=== PATIENT | female | born 1965 | race Caucasian/White ===

== ENCOUNTER 2024-10-23 09:19 | Day surgery (SDC) | payer BC ==
[2024-10-19 09:15] LABS: BASOPHILS # (AUTO) 0.1 X10'3 (0-0.2); BASOPHILS % (AUTO) 1.1 % (0-1); EOSINOPHILS # (AUTO) 0.2 X10'3 (0-0.9); EOSINOPHILS % (AUTO) 2.6 % (0-6); HEMATOCRIT 45.8 % (35.0-45.0); HEMOGLOBIN 15.5 g/dl (12.0-16.0); LYMPHOCYTES # (AUTO) 1.6 X10'3 (1.1-4.8); LYMPHOCYTES % (AUTO) 21.5 % (21-51); MEAN CORPUSCULAR HEMOGLOBIN 29.9 PG (27.0-31.0); MEAN CORPUSCULAR HGB CONC 33.8 g/dL (33.0-36.5); MEAN CORPUSCULAR VOLUME 88.7 FL (78-98); MEAN PLATELET VOLUME 7.1 FL (7.4-10.4); MONOCYTES # (AUTO) 0.4 X10'3 (0-0.9); MONOCYTES % (AUTO) 5.4 % (2-12); NEUTROPHILS % (AUTO) 69.4 % (42-75); PLATELET COUNT 322 X10'3 (140-440); RED BLOOD COUNT 5.17 X10'6 (4.20-5.60); RED CELL DISTRIBUTION WIDTH 12.9 % (11.5-14.5); WHITE BLOOD COUNT 7.3 X10'3 (4.5-11.0)
[2024-10-19 09:31] LABS: APTT 27 SECONDS (22-32)
[2024-10-19 09:36] LABS: PROTHROMBIN TIME 10.3 SECONDS (9.0-12.0)
[2024-10-19 09:37] LABS: ALBUMIN 4.2 G/DL (3.4-5.0); ANION GAP 6 (8-16); BLOOD UREA NITROGEN 11 MG/DL (7-18); BUN/CREATININE RATIO 19.6 (10.0-20.0); CALCIUM 9.5 MG/DL (8.5-10.1); CHLORIDE 107 MMOL/L (99-107); CHOL/HDL RATIO 2.1 (0.00-4.99); CHOLESTEROL 179 MG/DL (0-200); CREATININE 0.56 MG/DL (0.40-0.90); GLUCOSE 104 MG/DL (70-104); HDL CHOLESTEROL 85 MG/DL (35-60); LDL CHOLESTEROL 77 MG/DL (50-100); POTASSIUM 4.5 MMOL/L (3.5-5.1); SODIUM 140 MMOL/L (135-145); TOTAL CARBON DIOXIDE 26.6 MMOL/L (24-32); TRIGLYCERIDES 118 MG/DL (20-135); eGFR > 90 ML/MIN
[~2024-10-23] VITALS: Ht 170.2 cm; Wt 78.0 kg
[2024-10-23] VITALS (8 sets, daily range): BP systolic 117–140; BP diastolic 70–96; PULSE 76–85; RESP 11–15; TEMP 97.8; O2SAT 93–95
[2024-10-23] MEDS ORDERED: LEVO50TA8 PO (09:46)
[2024-10-23] MEDS ORDERED: ALBU18HF2 INH (09:46)
[2024-10-23] MEDS ORDERED: ALPR0.252 PO (09:46)
[2024-10-23] MEDS ORDERED: DILT180C76 PO (09:46)
[2024-10-23] MEDS ORDERED: ASPI-1265 PO (09:46)
[2024-10-23] MEDS ORDERED: ALB0.5UD INH (09:46)
[2024-10-23] MEDS ORDERED: ATOR20TA PO (09:48)
[2024-10-23] MEDS ORDERED: MONT-40 PO (09:48)
--- NOTE | 2024-10-23 09:55 | ELECTROCARDIOGRAPH REPORT ---
[facility] Test Date: 2024-10-23 Test Time: 09:52:25 Pat Name: FLOR RYAN Department: [facility] Patient ID: [facility]-[id number] Room: Gender: F Mobile Lounge Driver Or Operator: : 1965 Requested By: JAYLENE FIGUEROA Order Number: [id number] Reading MD: Dr. SAIDA Yi Measurements Intervals [place] Rate: 78 P: 72 WA: 214 QRS: 128 QRSD: 100 T: 90 QT: 425 QTc: 485 Interpretive Statements Sinus rhythm Prolonged WA interval Right axis deviation Borderline T abnormalities, anterior leads Electronically Signed On 10-23-2024 16:35:[address] SAIDA Yi Please click the below link to view image of tracing.
[2024-10-23] MEDS: LORazepam 0.5 MG tablet PO PRN (11:52)
[2024-10-23] MEDS: diphenhydrAMINE 25mg capsule PO PRN (11:53)
[2024-10-23] MEDS: normal saline 1,000 ML IV SCH (11:53)
[2024-10-23] MEDS ORDERED: midazolam 1 mg/ML 2ml injection ONE (11:57)
[2024-10-23] MEDS ORDERED: fentaNYL/PF 50MCG/1 ML 2ML syringe ONE (11:57)
[2024-10-23] MEDS ORDERED: iohexol 350 MG/ML 50ML vial IV ONE (11:58)
[2024-10-23] MEDS ORDERED: LIDOcaine 1% (10mg/ml) 2ml vial ONE (12:04)
--- NOTE | 2024-10-23 14:03 | CARDIAC CATH REPORT ---
Cardiac Cath Report Providers to CC CC: RORO FIGUEROA MD Procedure Comments: 1. Right Heart Catheterization 2. Right Brachial vein access Brief History/Indications: 58yo woman with HTN, HLD, ?COPD, concerns of elevated pulmonary pressures referred for evaluation. Techniques: After informed consent was obtained, the patient was brought to the cardiac catheterization laboratory and prepped and draped in usual sterile fashion for a right heart catheterization and other procedures mentioned above. The right AC fossa was anesthetized with 1% Lidocaine. The right AC IV was exchanged over a wire for an 6fr sheath. Through this, the [place] was advanced to the right atrium, the right ventricle, the pulmonary artery, and wedge position. At the conclusion of the case the sheath was removed and hemostasis obtained with manual compression. Findings Findings: HEMODYNAMICS: RA: 1 mmHg RV: 57/-, RVEDP 3 mmHg PA: 63/20, mPAP 36 mmHg PCWP: 25 mmHg(V-waves up to 32 mmHg) TP mmHg DP mmHg Ao: 142/78, MAP 103 mmHg HR: 80bpm Ao Sat(assumed, off O2): 94% PA Sat: 77% CO/CI(Soto): 6.09/3.22 Results Results: 1. Pulmonary venous Hypertension with mPAP 36mmHg, PCWP 25mmHg, TPG 11mmHg DPG 5 mmHg 2. RBV access, closed with manual compression RECOMMENDATIONS: 1. Recommend keeping outpt cards follow-up to discuss txt of JAYLENE Fatima MD October 23, 2024 14:03
[2024-10-24 06:52] LABS: ISTAT HGB MIX 13.3 g/dl (12.0-16.0); ISTAT Hct MIX 39 %PCV (35-45); ISTAT O2 SATURATION MIX VENOUS 77 % (60-80); ISTAT SOURCE VEN
[2024-10-24 06:52] LABS: ISTAT HGB MIX 13.3 g/dl (12.0-16.0); ISTAT Hct MIX 39 %PCV (35-45); ISTAT O2 SATURATION MIX VENOUS 80 % (60-80); ISTAT SOURCE VEN
== END 2024-10-23 15:50 | disposition home or self-care (01) ==
LOC: SSTAY O 09:19
PROVIDERS: ATTEND Student in an Organized Health Care Education/Training Program
DX: I27.20 Pulmonary hypertension, unspecified (principal); E78.5 Hyperlipidemia, unspecified; I25.10 Atherosclerotic heart disease of native coronary artery without angina pectoris; I10 Essential (primary) hypertension; E03.9 Hypothyroidism, unspecified; J44.9 Chronic obstructive pulmonary disease, unspecified; Z88.1 Allergy status to other antibiotic agents; Z79.899 Other long term (current) drug therapy; Z79.82 Long term (current) use of aspirin; Z79.01 Long term (current) use of anticoagulants
CPT/HCPCS: 36415; 80048; 80061; 82803; 85014; 85025; 85610; 85730; 93005; 93451; J1644; J2003; J2250; J3010; J7030; Q0163; 99152; A6402; C1751; C1894; Q9967

== ENCOUNTER 2025-04-17 17:11 | Emergency (ER) | payer BC ==
[~2025-04-17] VITALS: Ht 170.2 cm; Wt 77.3 kg
[~2025-04-17 17:11] MED LIST: ALB0.5UD INH; ALBU18HF2 INH; ALPR0.252 PO; ASPI-1265 PO; ATOR20TA PO; DILT180C76 PO; LEVO50TA8 PO; MONT-40 PO
[2025-04-17 17:23] VITALS: BP 140/79
--- NOTE | 2025-04-17 18:49 | Physician Documentation ---
History of Present Illness ~ Chief Complaint: Head Injury Stated Complaint: FALL/HEAD WOUND Time Seen by MD: 18:49 OK to notify your PCP?: Yes HPI This is a 59-year-old female who presents with a laceration to the bridge of her nose between her eyebrows after stumbling striking her head on a metal rail while shopping. Patient reports no loss of consciousness, no nausea, no vomi ting, no fingers, and reports not on blood thinners. Patient reports no other acute symptoms or concerns. Medication Reconciliation Allergies: Coded Allergies: ciprofloxacin (Verified Allergy, Unknown, 04/17/25) Scheduled Aspirin (Aspirin), PO DAILY, (Reported) Atorvastatin Calcium* (Lipitor*), 1 TAB PO DAILY, (Reported) Diltiazem Hcl (Diltiazem Er), 1 CAP PO DAILY, (Reported) Levothyroxine Sodium (Levothyroxine Sodium), 1 TAB PO DAILY, (Reported) Montelukast Sodium (Montelukast Sodium), 10 MG PO HS, (Reported) Scheduled PRN Albuterol Sulfate (Ventolin Hfa), 2 PUFF INH Q4H PRN for SOB or wheezing, (Reported) Albuterol Sulfate* (Proventil Neb*), 1 INH INH Q4H PRN for SOB or wheezing, (Reported) Alprazolam (Xanax), 1 TAB PO DAILY PRN for anxiety, (Reported) Past Medical History Past Medical History: No Pertinent History Review of Systems ROS As stated above in the HPI, otherwise all systems are reviewed and negative. Physical Exam Vital Signs: Heart Rate: 92, Respiratory Rate: 16, BP: 140/79, Pulse Oximetry: 96, Weight: 77.270 Oxygen Flow Rate: 0 Physical Exam VITALS: Reviewed and as above. GENERAL: Alert, nontoxic appearing, no apparent distress. HEENT: No facial swelling, PERRLA, EOMI RESPIRATORY: No increased work of breathing, no respiratory distress, speaking in full clear sentences SKIN: 2.5 cm laceration to bridge of nose between eyebrows, evidence of deep tissue involvement, no evidence of retained foreign body. Small abrasion to chin Procedures Laceration/Wound Repair Laceration/Wound Repair : Location: Bridge of nose between eyebrows Length (cm): 2.5 Anesthesia: Lidocaine w/ Epi Volume Anesthetic (mls): 5 Prep: irrigated by nurse Undermining: none Margins: revised Foreign Body: not identified Repaired: skin Wound Repaired With: sutures Suture Size/Type: 6-0 Number of Superficial Sutures: 10 Splint Applied?: No Sling Applied?: No Tolerated Procedure Well?: yes, no complications Progress Results/Orders Results/Orders Orders - JACKIE GUTHRIE Laceration/I&D Tray Set Up (04/17/25 19:21) Completed Orders - JACKIE GUTHRIE Lidocaine 1% W/Epi 1:100,000 (Xylocaine (04/17/25 19:25) Tetanus/Pertuss/Diph Acell/Pf (Boostrix (04/17/25 19:25) Medications Received in ER Medications (Trade) Dose Ordered Sig/Rajat Route PRN Reason Start Time Stop Time Status Last Admin Dose Admin (Boostrix vaccine syringe) 0.5 ml ONCE ONCE IMVAC 04/17/25 19:25 04/17/25 19:26 DC 04/17/25 22:34 0.5 ML Vital Signs 04/17/25 04/17/25 17:23 19:05 Pulse 92 72 Resp 16 15 B/P (MAP) 140/79 Pulse Ox 96 99 O2 Flow Rate 0 Medical Decision Making Additional information obtaine: N/A Findings This is a 59-year-old female who presented with a laceration to bridge of her nose between her eyebrows after a stumble and fall striking her head on a metal pole, patient did not lose consciousness and is not on blood thinners which is reassuring. Physical exam demonstrated 2.5 cm laceration to the bridge of her nose between her eyebrows extending into lower forehead, the laceration was superficial though amenable to repair, no evidence of involvement of musculature or other deep tissue which would necessitate a layered closure, no evidence of retained foreign body. Patient is otherwise well-appearing with remainder of physical exam benign. Patient is appropriate for outpatient follow up. Patient provided home care instructions, return to care precautions, and follow up instructions which she verbalized understanding of. Differential Dx:Considerations: Include: Closed head injury, Cervical spine injury, Skull facture, Abrasion, Contusion, Foreign body, Laceration Departure Time of Disposition: 23:32 Disposition: 01 HOME / SELF CARE / HOMELESS Impression: Primary Impression: Laceration of forehead without complication Qualified Codes: S01.81XA - Laceration without foreign body of other part of head, initial encounter Condition: Improved Discharge Instructions: Facial Laceration, [id number] Additional Instructions: Wash the area gently after 24 hours otherwise keep it clean and dry. Do not submerge the area or go swimming. Return in 5-7 days for suture removal, you may return to your primary care, urgent care, or an emergency department. Please follow up with your primary care provider in the next few days. Please return to the emergency department for any new or worsening concerning symptoms signs of infection such as increased redness or swelling or if you develop a fever. Referrals: NO PRIMARY CARE PROVIDER (PCP) Education Educated: Patient Educated regarding: diagnosis, treatment, prognosis, need for follow up Signature Scribe Signature: No scribe Attestation: The note accurately reflects work and decisions made by me.REI Yin 04/18/25 01:52 JACKIE GUTHRIE Apr 17, 2025 18:49
[2025-04-17 19:05] VITALS: PULSE 72; RESP 15; O2SAT 99
[2025-04-17] MEDS: LIDOcaine 1% W/epiNEPHrine 1:100,000 20ml vial IJ ONE (19:25)
[2025-04-17] MEDS: TETanus/Pertussis (Acell)/Diphther VAC/PF (Tdap-Adult) 0.5ml syringe IMVAC ONE (22:34)
== END 2025-04-18 | disposition home or self-care (01) ==
LOC: ER 17:12
DX: S01.81XA Laceration without foreign body of other part of head, initial encounter (principal); Z88.1 Allergy status to other antibiotic agents; Z79.82 Long term (current) use of aspirin; W22.8XXA Striking against or struck by other objects, initial encounter; Y93.89 Activity, other specified; Y92.89 Other specified places as the place of occurrence of the external cause; Y99.8 Other external cause status
CPT/HCPCS: 12011; 90471; 90715; 99284; J7030; A6449